=== PATIENT | female | born 1995 | race Caucasian/White ===

== ENCOUNTER 2018-02-04 18:40 | Emergency (ER) | payer OTHER | END 2018-02-04 19:06 | disposition home or self-care (01) | LOC: E/R 18:40 | DX: R21 Rash and other nonspecific skin eruption (principal) | CPT/HCPCS: 99283; Z7502 ==

== ENCOUNTER 2018-02-23 19:42 | Outpatient (CLI) | payer OTHER | END 2018-02-23 22:30 | disposition home or self-care (01) | LOC: OBT 19:42 → L-D 19:43 → OBT 22:30 | DX: O09.33 Supervision of pregnancy with insufficient antenatal care, third trimester (principal); O32.1XX0 Maternal care for breech presentation, not applicable or unspecified; Z3A.38 38 weeks gestation of pregnancy | CPT/HCPCS: 76818 ==

== ENCOUNTER 2018-02-26 11:13 | Outpatient (CLI) | payer OTHER ==
[2018-02-26 12:23] LABS: RUPTURE FETAL MEMBRANES NEGATIVE (NEGATIVE)
[2018-02-28] MEDS ORDERED: OXYTOCIN 10 UNIT INJ (00:29)
[2018-02-28] MEDS ORDERED: OXYTOCIN 30 UNITS/LR 500 ML IV (00:29)
[2018-02-28] MEDS ORDERED: morphine SULFATE/PF (10 MG/10 ML) INJ (00:29)
[2018-02-28] MEDS ORDERED: BUPIVACAINE 0.75%/DEXT (SPINAL) 2 ML INJ (00:29)
[2018-02-28] MEDS ORDERED: EPINEPHrine 1 MG INJ (00:32)
== END 2018-02-26 13:10 | disposition home or self-care (01) ==
LOC: OBT 11:13 → L-D 11:14 → OBT 13:10
DX: O62.9 Abnormality of forces of labor, unspecified (principal); Z3A.38 38 weeks gestation of pregnancy
CPT/HCPCS: 76818; 84112

== ENCOUNTER 2018-02-27 22:24 | Inpatient (IN) | payer OTHER ==
[2018-02-27] MEDS ORDERED: OXYTOCIN 30 UNITS/LR 500 ML IV (23:00)
[2018-02-27] MEDS ORDERED: METHYLERGONOVINE 0.2 MG INJ IM (23:00)
[2018-02-27] MEDS ORDERED: MISOPROSTOL 200 MCG TAB PR (23:00)
[2018-02-27] MEDS ORDERED: CARBOPROST 250 MCG INJ IM (23:00)
[2018-02-27] MEDS: LACTATED RINGER'S 1,000 ML IV (23:11)
[2018-02-27 23:27] LABS: ADD MAN DIFF? NO
[2018-02-27 23:31] LABS: BASOPHILS % 0.2 % (0.0-2.0); EOSINOPHILS # 0.3 10^3/ul (0.0-0.5); EOSINOPHILS % 3.3 % (0.0-7.0); HEMATOCRIT 37.8 % (37.0-47.0); HEMOGLOBIN 12.6 g/dl (12.0-16.0); LYMPHOCYTES # 1.6 10^3/ul (0.8-2.9); LYMPHOCYTES % 17.8 % (15.0-51.0); MEAN CORPUSCULAR HEMOGLOBIN 30.8 pg (29.0-33.0); MEAN CORPUSCULAR HGB CONC 33.3 g/dl (32.0-37.0); MEAN CORPUSCULAR VOLUME 92.4 fl (82.0-101.0); MONOCYTE # 0.6 10^3/ul (0.3-0.9); MONOCYTES % 7.1 % (0.0-11.0); NEUTROPHIL # 6.3 10^3/ul (1.6-7.5); NEUTROPHILS % 70.7 % (39.0-77.0); PLATELET COUNT 220 10^3/UL (140-415); RED BLOOD COUNT 4.09 10^6/ul (4.20-5.40); RED CELL DISTRIBUTION WIDTH 14.4 % (11.5-14.5)
[2018-02-27 23:51] LABS: INR 0.89; PROTIME 12.1 Sec (11.9-14.9); PT RATIO 0.9
[2018-02-27 23:52] LABS: PARTIAL THROMBOPLASTIN TIME 26.1 Sec (25.0-35.0)
[2018-02-28] MEDS ORDERED: TERBUTALINE 1 ML (00:10)
[2018-02-28] MEDS ORDERED: METOCLOPRAMIDE 10 MG INJ (00:10)
[2018-02-28] MEDS ORDERED: CITRIC ACID/SODIUM CITRATE 15 ML CUP (00:10)
[2018-02-28] MEDS ORDERED: ONDANSETRON 4 MG INJ (00:10)
[2018-02-28] MEDS ORDERED: FAMOTIDINE 20 MG INJ (00:11)
[2018-02-28] MEDS: METOCLOPRAMIDE 10 MG INJ IV (00:16)
[2018-02-28] MEDS: TERBUTALINE 1 MG/ML INJ SC (00:16)
[2018-02-28] MEDS: CITRIC ACID/SODIUM CITRATE 15 ML CUP PO (00:17)
[2018-02-28] MEDS: FAMOTIDINE 20 MG INJ IV (00:20)
[2018-02-28] MEDS: ONDANSETRON 4 MG INJ IV (00:20)
[2018-02-28 00:24] LABS: HEPATITIS B SURFACE ANTIGEN NEGATIVE (NEGATIVE)
[2018-02-28] MEDS ORDERED: TERBUTALINE 1 MG/ML INJ SC (00:30)
[2018-02-28] MEDS ORDERED: DEXTROSE 5%-LR 1,000 ML IV (00:54)
[2018-02-28] MEDS ORDERED: MISOPROSTOL 200 MCG TAB PR (01:00)
[2018-02-28] MEDS ORDERED: ONDANSETRON 4 MG INJ IV ×2 (01:00)
[2018-02-28] MEDS ORDERED: HYDROmorphONE 1 MG/5 ML IV SYRINGE IV ×3 (01:00)
[2018-02-28] MEDS ORDERED: OXYTOCIN 30 UNITS/LR 500 ML IV (01:00)
[2018-02-28] MEDS ORDERED: METHYLERGONOVINE 0.2 MG INJ IM (01:00)
[2018-02-28] MEDS ORDERED: METHYLERGONOVINE 0.2 MG TAB PO (01:00)
[2018-02-28] MEDS ORDERED: DIPHENHYDRAMINE 50 MG INJ IV ×2 (01:00)
[2018-02-28] MEDS ORDERED: FENTAnyl 50 MCG/ML VIAL IV ×2 (01:00)
[2018-02-28] MEDS ORDERED: CARBOPROST 250 MCG INJ IM (01:00)
[2018-02-28] MEDS ORDERED: ZOLPIDEM 5 MG TAB PO (01:00)
[2018-02-28] MEDS ORDERED: KETOROLAC 30 MG INJ IV ×2 (01:00)
[2018-02-28] MEDS ORDERED: NALOXONE (0.4 MG/ML) INJ IV (01:00)
[2018-02-28] MEDS ORDERED: OXYCODONE/ACETAMINOPHEN (5/325) TAB PO (01:00)
[2018-02-28] MEDS ORDERED: HYDROmorphONE 0.5 MG/0.5 ML SYG IV ×2 (01:00)
[2018-02-28] MEDS: CEFAZOLIN 2 GM/50 ML (PMX) 50 ML IV (01:17)
[2018-02-28] MEDS: OXYTOCIN 30 UNITS/LR 500 ML IV ×2 (02:54→04:55)
[2018-02-28] MEDS: OXYCODONE/ACETAMINOPHEN (5/325) TAB PO ×3 (05:30→16:04)
[2018-02-28] MEDS ORDERED: OXYTOCIN 30 UNITS/LR 500 ML BAG IV (07:00)
[2018-02-28] MEDS ORDERED: EPHEDrine SULFATE 50 MG/5 ML SYG (07:00)
[2018-02-28] MEDS ORDERED: BUPIVACAINE 0.75%/DEXT (SPINAL) 2 ML INJ (07:00)
[2018-02-28] MEDS ORDERED: OXYTOCIN 10 UNIT INJ (07:00)
[2018-02-28] MEDS ORDERED: EPINEPHrine 1 MG INJ (07:00)
[2018-02-28] MEDS ORDERED: morphine SULFATE/PF (10 MG/10 ML) INJ (07:00)
[2018-02-28] MEDS: SENNA/DOCUSATE NA (8.6MG/50MG) TAB PO ×2 (08:21→21:30)
[2018-02-28] MEDS: LACTATED RINGER'S 1,000 ML IV (16:04)
[2018-02-28 17:04] LABS: RAPID PLASMA REAGIN NONREACTIVE (NR)
[2018-03-01] MEDS: LACTATED RINGER'S 1,000 ML IV
[2018-03-01] MEDS: OXYCODONE/ACETAMINOPHEN (5/325) TAB PO ×3 (01:00→17:00)
[2018-03-01] MEDS: KETOROLAC 30 MG INJ IV (01:34)
[2018-03-01] MEDS: IBUPROFEN 800 MG TAB PO ×4 (05:52→21:26)
[2018-03-01] MEDS: LANOLIN 7 GM TUBE TOP (08:13)
[2018-03-01] MEDS: SENNA/DOCUSATE NA (8.6MG/50MG) TAB PO ×2 (08:13→21:26)
[2018-03-01 10:01] LABS: ADD MAN DIFF? NO
[2018-03-01 10:03] LABS: BASOPHILS % 0.2 % (0.0-2.0); EOSINOPHILS # 0.1 10^3/ul (0.0-0.5); EOSINOPHILS % 1.4 % (0.0-7.0); HEMATOCRIT 34.2 % (37.0-47.0); HEMOGLOBIN 11.3 g/dl (12.0-16.0); LYMPHOCYTES # 1.1 10^3/ul (0.8-2.9); LYMPHOCYTES % 11.5 % (15.0-51.0); MEAN CORPUSCULAR HEMOGLOBIN 31.1 pg (29.0-33.0); MEAN CORPUSCULAR VOLUME 94.2 fl (82.0-101.0); MEAN PLATELET VOLUME 9.7 fl (7.4-10.4); MONOCYTE # 0.6 10^3/ul (0.3-0.9); MONOCYTES % 6.5 % (0.0-11.0); NEUTROPHIL # 7.8 10^3/ul (1.6-7.5); NEUTROPHILS % 79.8 % (39.0-77.0); PLATELET COUNT 196 10^3/UL (140-415); RED BLOOD COUNT 3.63 10^6/ul (4.20-5.40); RED CELL DISTRIBUTION WIDTH 14.6 % (11.5-14.5)
[2018-03-01 10:03] LABS: WHITE BLOOD COUNT 9.8 10^3/ul (4.8-10.8)
[2018-03-02] MEDS: OXYCODONE/ACETAMINOPHEN (5/325) TAB PO ×3 (01:00→17:00)
[2018-03-02] MEDS: IBUPROFEN 800 MG TAB PO ×3 (05:45→21:52)
[2018-03-02] MEDS: LANOLIN 7 GM TUBE TOP (05:50)
[2018-03-02] MEDS: SENNA/DOCUSATE NA (8.6MG/50MG) TAB PO ×2 (09:19→21:00)
[2018-03-03] MEDS: OXYCODONE/ACETAMINOPHEN (5/325) TAB PO ×2 (01:00→08:57)
[2018-03-03] MEDS: IBUPROFEN 800 MG TAB PO ×2 (06:40→13:44)
[2018-03-03] MEDS: SENNA/DOCUSATE NA (8.6MG/50MG) TAB PO (08:57)
[2018-03-03] MEDS ORDERED: MEASLES,MUMPS,RUBELLA VACCINE INJ SC* (09:00)
[2018-03-03] MEDS: DIPHTH/TET/ACEL PERTUSS (ADULT) 0.5 ML VIAL IM* (14:39)
== END 2018-03-03 17:11 | disposition home or self-care (01) | DRG 766 ==
LOC: OBT 22:24 → L-D 02-28 00:44 → PP1 02-28 04:46 → L-D 22:34 → OBT 22:45 → L-D 22:45
PROVIDERS: Obstetrics & Gynecology
PROC: 10D00Z1 Extraction of Products of Conception, Low, Open Approach (ICD-10-PCS; principal; 2018-02-28 01:00)
PROC: 3E033VJ Introduction of Other Hormone into Peripheral Vein, Percutaneous Approach (ICD-10-PCS; 2018-02-28 01:00)
DX: O32.1XX0 Maternal care for breech presentation, not applicable or unspecified (principal); Z3A.39 39 weeks gestation of pregnancy; Z37.0 Single live birth
CPT/HCPCS: 36415; 76815; 85025; 85610; 85730; 86592; 86850; 86900; 86901; 87340; 90715; 99464